=== PATIENT | female | born 1995 | race Caucasian/White ===

== ENCOUNTER 2022-12-15 07:26 | Inpatient (IN) | payer OTHER ==
[2022-12-15 08:55] LABS: BASO % 0.3 % (0-2.0); EOS % 0.9 % (0-4.5); HEMATOCRIT 35.4 % (32.4-45.2); HEMOGLOBIN 12.2 GM/dL (10.7-15.3); LYMPH % 14.4 % (8-40); MCH 30.7 pg (25.7-33.7); MCHC 34.6 g/dl (32.0-36.0); MEAN CELL VOLUME 88.7 fl (80-96); MEAN PLT VOLUME 9.8 fl (7.5-11.1); MONO % 6.2 % (3.8-10.2); NEUT % 78.2 % (42.8-82.8); PLATELET COUNT 208 10^3/uL (134-434); RBC 3.99 M/mm3 (3.60-5.2); RDW 13.2 % (11.6-15.6)
[2022-12-15 09:03] LABS: INR 1.01 (0.83-1.09); PROTHROMBIN TIME (PATIENT) 11.7 SEC (9.7-13.0)
[2022-12-15 09:12] LABS: POTASSIUM 3.5 mmol/L (3.5-5.1)
[2022-12-15 09:13] LABS: CALCIUM 9.2 mg/dL (8.5-10.1)
[2022-12-15 09:14] LABS: BLOOD UREA NITROGEN 8.3 mg/dL (7-18)
[2022-12-15 09:17] LABS: CREATININE 0.8 mg/dL (0.55-1.3)
[2022-12-15 09:31] VITALS: BMI 28.2
[2022-12-15] MEDS ORDERED: OXYTOCIN 30 UNITS in 0.9% NS 30 UNIT/500 ML INFUS.BAG IVPB ONE (09:44)
[2022-12-15] MEDS ORDERED: ELECTROLYTE-148 SOLN 1,000 ML IV SCH (09:45)
[2022-12-15] MEDS ORDERED: OXYTOCIN 30 UNITS in 0.9% NS 30 UNIT/500 ML INFUS.BAG IVPB SCH (10:00)
[2022-12-15] MEDS: FENTANYL/BUPIVACAINE/NS/PF - PCEA - 50 ML DISP.SYRIN EP SCH (13:55)
[2022-12-15] MEDS ORDERED: FENTANYL/BUPIVACAINE/NS/PF - PCEA - 50 ML DISP.SYRIN EP ONE (13:59)
[2022-12-15] MEDS: ELECTROLYTE-148 SOLN 1,000 ML IV SCH ×2 (14:00→17:00)
[2022-12-15] MEDS ORDERED: NALOXONE HCL 0.4 MG/ML VIAL IVPUSH PRN (15:06)
[2022-12-15] MEDS ORDERED: OXYTOCIN 20 UNITS in 0.9% NS 20 UNIT/1,000 ML INFUS.BAG IV ONE (17:27)
[2022-12-15] MEDS ORDERED: LIDOCAINE HCL 1% PRESERVATIVE FREE - 30ML VIAL ONE (17:27)
[2022-12-15] MEDS ORDERED: oxyCODONE HCL 5 MG TABLET PO PRN (18:58)
[2022-12-15] MEDS ORDERED: BISACODYL 10 MG SUPP.RECT RC PRN (18:58)
[2022-12-15] MEDS ORDERED: METHYLERGONOVINE MALEATE 0.2 MG/1 ML AMP IM PRN (18:58)
[2022-12-15] MEDS ORDERED: ACETAMINOPHEN 325 MG TABLET (FP) PO PRN (18:58)
[2022-12-15] MEDS ORDERED: BENZOCAINE 20% 57 GM BOTTLE TP PRN (18:58)
[2022-12-15] MEDS ORDERED: WITCH HAZEL 50% (TUCKS) 40 PAD/JAR PAD TP PRN (18:58)
[2022-12-15] MEDS ORDERED: BENZOCAINE 28 GM HEMORRHOIDAL OINTMENT TP PRN (18:58)
[2022-12-15] MEDS ORDERED: OXYTOCIN 20 UNITS in 0.9% NS 20 UNIT/1,000 ML INFUS.BAG IV SCH (19:00)
[2022-12-15] MEDS ORDERED: IBUPROFEN 600 MG TABLET (FP) PO ONE (21:02)
[2022-12-15] MEDS: IBUPROFEN 600 MG TABLET (FP) PO PRN (21:05)
[2022-12-15 22:42] VITALS: RESP 18
[2022-12-16] MEDS: IBUPROFEN 600 MG TABLET (FP) PO PRN ×4 (00:18→15:12)
[2022-12-16 07:09] LABS: BASO % 0.2 % (0-2.0); EOS % 0.5 % (0-4.5); HEMATOCRIT 29.9 % (32.4-45.2); HEMOGLOBIN 10.7 GM/dL (10.7-15.3); LYMPH % 12.8 % (8-40); MCH 31.3 pg (25.7-33.7); MCHC 35.7 g/dl (32.0-36.0); MEAN CELL VOLUME 87.7 fl (80-96); MEAN PLT VOLUME 10.4 fl (7.5-11.1); MONO % 7.5 % (3.8-10.2); PLATELET COUNT 185 10^3/uL (134-434); RBC 3.41 M/mm3 (3.60-5.2); RDW 12.9 % (11.6-15.6); WHITE BLOOD COUNT 17.3 K/mm3 (4.0-10.0)
[2022-12-16] MEDS: FERROUS SO4 325 MG TABLET (FP) PO SCH ×3 (09:00→18:08)
[2022-12-16] MEDS: PRENATAL VITAMINS W/ FOLIC ACID TABLET (FP) PO SCH (09:38)
[2022-12-16] MEDS: FENTANYL/BUPIVACAINE/NS/PF - PCEA - 50 ML DISP.SYRIN EP SCH (16:29)
[2022-12-16] MEDS: ELECTROLYTE-148 SOLN 1,000 ML IV SCH (16:30)
[2022-12-16] MEDS ORDERED: SENNOSIDES/DOCUSATE COMBO (SENNA PLUS) TABLET (UD) PO PRN (22:00)
[2022-12-17] MEDS: IBUPROFEN 600 MG TABLET (FP) PO PRN ×2 (08:28→12:40)
[2022-12-17] MEDS: FERROUS SO4 325 MG TABLET (FP) PO SCH ×2 (09:00→12:40)
[2022-12-17] MEDS: PRENATAL VITAMINS W/ FOLIC ACID TABLET (FP) PO SCH (09:39)
[2022-12-17 09:59] VITALS: BP 109/69; PULSE 88; TEMP 98.6
== END 2022-12-17 12:57 | disposition home or self-care (01) | DRG 560 ==
LOC: JLDR 07:26 → J3W 22:00
PROVIDERS: ADMIT Obstetrics & Gynecology; ATTEND Obstetrics & Gynecology
PROC: 10E0XZZ Delivery of Products of Conception, External Approach (ICD-10-PCS; principal; 2022-12-15)
DX: O80 Encounter for full-term uncomplicated delivery (principal); Z3A.39 39 weeks gestation of pregnancy; Z37.0 Single live birth
CPT/HCPCS: 36415; 80048; 85025; 85610; 85730; 86780; 86850; 86900; 86901; C9803-CS; U0003; U0005

== ENCOUNTER 2024-10-21 07:10 | Inpatient (IN) | payer OTHER ==
[2024-10-21] MEDS: ELECTROLYTE-148 SOLN 1,000 ML IV SCH (08:00)
[2024-10-21 08:24] LABS: PROTHROMBIN TIME (PATIENT) 10.9 SEC (9.7-13.0)
[2024-10-21 08:26] LABS: ACTIVATED PTT 24.5 SECONDS (25.2-36.5)
[2024-10-21 08:35] VITALS: BMI 28.5
[2024-10-21 08:36] LABS: BASO % 0.2 % (0-2.0); EOS % 2.8 % (0-4.5); HEMATOCRIT 33.1 % (32.4-45.2); HEMOGLOBIN 10.9 GM/dL (10.7-15.3); LYMPH % 12.3 % (8-40); MCH 27.9 pg (25.7-33.7); MCHC 32.9 g/dl (32.0-36.0); MEAN CELL VOLUME 84.9 fl (80-96); MEAN PLT VOLUME 9.4 fl (7.5-11.1); MONO % 5.6 % (3.8-10.2); NEUT % 79.1 % (42.8-82.8); PLATELET COUNT 236 10^3/uL (134-434); RBC 3.91 M/mm3 (3.60-5.2); WHITE BLOOD COUNT 13.5 K/mm3 (4.0-10.0)
[2024-10-21 08:45] LABS: POTASSIUM 3.9 mmol/L (3.5-5.1)
[2024-10-21 08:46] LABS: CALCIUM 8.6 mg/dL (8.5-10.1)
[2024-10-21 08:47] LABS: BLOOD UREA NITROGEN 9.9 mg/dL (7-18)
[2024-10-21 08:50] LABS: CREATININE 0.6 mg/dL (0.55-1.3)
[2024-10-21] MEDS ORDERED: OXYTOCIN 30 UNITS in 0.9% NS 30 UNIT/500 ML INFUS.BAG IVPB ONE (11:18)
[2024-10-21] MEDS: OXYTOCIN 30 UNITS in 0.9% NS 30 UNIT/500 ML INFUS.BAG IVPB SCH (11:20)
[2024-10-21] MEDS ORDERED: NALOXONE HCL 0.4 MG/ML VIAL IVPUSH PRN ×2 (13:01→15:05)
[2024-10-21] MEDS ORDERED: FENTANYL/BUPIVACAINE/NS/PF - PCEA - 50 ML DISP.SYRIN EP ONE ×2 (13:02→17:08)
[2024-10-21] MEDS: FENTANYL/BUPIVACAINE/NS/PF - PCEA - 50 ML DISP.SYRIN EP SCH ×2 (13:15→18:51)
[2024-10-21 15:45] LABS: SYPHILIS W/ RPR CONF NON-REACTIVE (NONREACTIVE)
[2024-10-21 16:14] LABS: HIV INTERPRETATION NEGATIVE (NEGATIVE)
[2024-10-21] MEDS: BUTORPHANOL TARTRATE 2 MG/ML VIAL IVPB ONE (16:33)
[2024-10-21] MEDS: PROMETHAZINE HCL 25 MG/1 ML VIAL IVPB ONE (16:33)
[2024-10-21] MEDS ORDERED: LIDOCAINE HCL 1% PRESERVATIVE FREE - 30ML VIAL ONE (18:10)
[2024-10-21] MEDS ORDERED: OXYTOCIN 20 UNITS in 0.9% NS 20 UNIT/1,000 ML INFUS.BAG IV ONE (18:10)
[2024-10-21] MEDS: OXYTOCIN 20 UNITS in 0.9% NS 20 UNIT/1,000 ML INFUS.BAG IV SCH (19:00)
[2024-10-21] MEDS ORDERED: oxyCODONE HCL 5 MG TABLET PO PRN (19:06)
[2024-10-21] MEDS ORDERED: ACETAMINOPHEN 325 MG TABLET (FP) PO PRN (19:06)
[2024-10-21] MEDS ORDERED: METHYLERGONOVINE MALEATE 0.2 MG/1 ML AMP IM PRN (19:06)
[2024-10-21] MEDS ORDERED: BISACODYL 10 MG SUPP.RECT RC PRN (19:06)
[2024-10-21] MEDS: IBUPROFEN 600 MG TABLET (FP) PO PRN (21:31)
[2024-10-21] MEDS: WITCH HAZEL 50% (TUCKS) 40 PAD/JAR PAD TP PRN (21:32)
[2024-10-21] MEDS: BENZOCAINE 20% 57 GM BOTTLE TP PRN (21:32)
[2024-10-21] MEDS: BENZOCAINE 28 GM HEMORRHOIDAL OINTMENT TP PRN (21:33)
[2024-10-22 00:28] VITALS: RESP 18
[2024-10-22 07:42] LABS: BASO % 0.4 % (0-2.0); EOS % 1.7 % (0-4.5); HEMATOCRIT 31.3 % (32.4-45.2); HEMOGLOBIN 10.2 GM/dL (10.7-15.3); LYMPH % 11.8 % (8-40); MCH 27.6 pg (25.7-33.7); MCHC 32.4 g/dl (32.0-36.0); MEAN CELL VOLUME 85.2 fl (80-96); MEAN PLT VOLUME 9.2 fl (7.5-11.1); NEUT % 77.1 % (42.8-82.8); PLATELET COUNT 204 10^3/uL (134-434); RBC 3.68 M/mm3 (3.60-5.2); WHITE BLOOD COUNT 12.8 K/mm3 (4.0-10.0)
[2024-10-22] MEDS: FERROUS SO4 325 MG TABLET (FP) PO SCH (09:45)
[2024-10-22] MEDS: PRENATAL VITAMINS W/ FOLIC ACID TABLET (FP) PO SCH (09:45)
[2024-10-22] MEDS ORDERED: SENNOSIDES/DOCUSATE COMBO (SENNA PLUS) TABLET (UD) PO PRN (22:00)
[2024-10-23 02:07] VITALS: PULSE 82
[2024-10-23 10:41] VITALS: BP 120/80; TEMP 98
== END 2024-10-23 12:20 | disposition home or self-care (01) | DRG 560 ==
LOC: JLDR 07:10 → J3W 21:12
PROVIDERS: ADMIT Obstetrics & Gynecology; ATTEND Obstetrics & Gynecology
PROC: 10E0XZZ Delivery of Products of Conception, External Approach (ICD-10-PCS; principal; 2024-10-21)
PROC: 0HQ9XZZ Repair Perineum Skin, External Approach (ICD-10-PCS; 2024-10-21)
DX: O70.0 First degree perineal laceration during delivery (principal); Z3A.39 39 weeks gestation of pregnancy; Z37.0 Single live birth
CPT/HCPCS: 36415; 59409; 80048; 85025; 85610; 85730; 86780; 86850; 86900; 86901; 87389